=== PATIENT | female | born 1975 | race Caucasian/White ===

== ENCOUNTER 2020-10-05 13:25 | Emergency (ER) | payer OTHER ==
[2020-10-05] MEDS ORDERED: Metoclopramide 10 MG/2 ML SDV IVPUSH ONE (13:37)
[2020-10-05] MEDS ORDERED: HYDROmorphone 0.5 MG/0.5 ML Syringe IVPUSH ONE (13:37)
[2020-10-05] MEDS ORDERED: Diphtheria,Pertussis(Acell),Tetanus Vaccine 0.5 ML Syringe IM ONE (13:42)
[2020-10-05] MEDS ORDERED: Dextrose 5%-0.9% NaCl 1,000 ML IV SCH (13:45)
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
--- NOTE | 2020-10-05 14:37 | CT ---
CT neck Technique: Multiple axial sectioans were obtained from above the dome of the diaphragm inferiorly to the top of T2. Reconstructed coronal and sagittal images were obtained. Comparison: No prior cervical spine imaging is available. Findings: Vertebral body heights and disc spaces are maintained. No bony central or bony neural foraminal stenosis is seen. No acute fracture or subluxation is seen. Impression: 1. No abnormality is identified on CT study of the cervical spine. Diagnostic code #1
--- NOTE | 2020-10-05 14:38 | CT ---
Head CT Technique: Multiple axial sections through the brain were obtained. Intravenous contrast was not utilized. Reconstructed coronal and sagittal images were obtained. Comparison: No prior intracranial imaging is available. Findings: Ventricles along with basal cisterns and sulci over the convexities appear within normal limits for the patient's age. No abnormal parenchymal densities are seen. No evidence of intracranial hemorrhage is seen. No midline shift or mass-effect is seen. Bone window settings were reviewed. Visualized mastoid sinuses and paranasal sinuses show nothing acute. No acute calvarial abnormality is appreciated. Impression: 1. Nothing acute is appreciated on noncontrast head CT exam. Diagnostic code #1
[2020-10-05] MEDS ORDERED: Ondansetron 4 MG/2 ML SDV ONE (15:03)
[2020-10-05] MEDS ORDERED: Ondansetron 4 MG/2 ML SDV IVPUSH ONE (15:03)
--- NOTE | 2020-10-05 17:24 | CR ---
Chest: Frontal view of the chest was obtained in AP projection. Comparison: No prior chest imaging is available. Slightly comminuted and foreshortened fracture is noted within the mid clavicle. This is seen on the left side. Small fracture is also noted within the anterior left first rib. No other acute osseous abnormality is appreciated. Heart size and mediastinum are normal. Lungs are clear. Impression: 1. Displaced fracture within the mid left clavicle as well as minimal fracture within the anterior left first rib. 2. Nothing acute is otherwise seen on frontal chest x-ray. Diagnostic code #3
--- NOTE | 2020-10-05 17:27 | CR ---
Left clavicle: 2 views of the left clavicle were obtained. Comparison: No previous study. Fracture is seen within the mid clavicle on the left side which is mildly comminuted. There is displacement and foreshortening being seen. Fracture within the anterior aspect of the left first rib is also again noted. No additional abnormality is seen other than soft tissue swelling. Impression: 1. Mid left clavicle fracture with comminution and foreshortening. 2. Minimal fracture within the anterior left first rib. Diagnostic code #3
--- NOTE | 2020-10-05 18:02 | CR ---
Left forearm: 2 views of the left forearm were obtained. Comparison: No previous study. Several scattered densities are noted within the soft tissues of the left forearm presumably due to foreign bodies. Please correlate. No acute fracture or other bony abnormality is appreciated. Impression: 1. Small foreign bodies as noted above within the soft tissues. 2. No acute osseous finding is seen. Diagnostic code #2
== END 2020-10-05 15:30 | disposition home or self-care (01) ==
LOC: JD.ED 13:25
DX: S06.0X9A Concussion with loss of consciousness of unspecified duration, initial encounter (principal); S42.022A Displaced fracture of shaft of left clavicle, initial encounter for closed fracture; S00.83XA Contusion of other part of head, initial encounter; S40.212A Abrasion of left shoulder, initial encounter; S40.211A Abrasion of right shoulder, initial encounter; S50.812A Abrasion of left forearm, initial encounter; S50.811A Abrasion of right forearm, initial encounter; S50.312A Abrasion of left elbow, initial encounter; S50.311A Abrasion of right elbow, initial encounter; Z23 Encounter for immunization; V19.9XXA Pedal cyclist (driver) (passenger) injured in unspecified traffic accident, initial encounter
CPT/HCPCS: 70450; 70450-26; 71045; 71045-26; 72125; 72125-26; 73000-26-LT; 73000-LT; 73090-26-LT; 73090-LT; 90471; 90715; 96374; 96375; 99284; 99285-25; J1170; J2405; J2765; J7042

== ENCOUNTER → 2020-10-09 | Day surgery (SDC) | payer OTHER ==
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
[~2020-10-09] MED LIST: Bupivacaine 0.25% 10 ML SDV ONE; Cyclobenzaprine 10 MG Tab PO PRN; Dexamethasone 4 MG/ML 5 ML MDV ONE; EPINEPHrine 1 MG/ML SDV ONE; Glycopyrrolate 0.2 MG/ML SDV ONE; Lactated Ringers 1,000 ML IV ONE; Lactated Ringers 1,000 ML IV SCH; Lidocaine 1% 4 ML ONE; Lidocaine 1%/Sod Bicarbonate in NS 8.4% 1 ML Syringe IDERM PRN; Midazolam 1 MG/ML 2 ML SDV ONE; Ondansetron 4 MG/2 ML SDV IVPUSH PRN; Ondansetron 4 MG/2 ML SDV ONE; Propofol 200 MG/20 ML SDV ONE; Rocuronium 50 MG/5 ML Vial ONE; Ropivacaine 0.5% 5 MG/ML 30 ML SDV ONE; Sodium Chloride 0.9% 10 ML Syringe FLUSH PRN; ceFAZolin 1 GM Vial ONE; fentaNYL 100 MCG/2 ML SDV IVPUSH PRN; fentaNYL 100 MCG/2 ML SDV ONE; fentaNYL 250 MCG/5 ML SDV ONE; oxyCODONE 5 MG Tab PO PRN
--- NOTE | 2020-10-09 13:40 | PCM.SN.2 ---
- Free Text/Narrative Note: Surgical Procedure: Left clavicle fracture ORIF Diagnosis Left clavicle fracture Current Procedure: Left interscalene block under US guidance for postoperative pain control requested by Dr. Salas. Patient chart reviewed, risk/benefits discussed with patient, consent obtained. Patient positioned supine, monitors/alarms on, oxygen placed via nasal cannula at 2 LPM. IV sedation administered: Versed 2mg IV, Fentanyl 150mcg IV given in preop prior to block placement. Left shoulder prepped with three chloropreps. Sterile drapes placed with aseptic technique noted. Under US guidance, left subclavian artery visualized along with the left brachial plexus. Plexus area localized with 2mls of 1% lidocaine. 22gauge 2 inch stimiplex needle advanced under US with 0.8mV with stimulation of biceps noted. Good stimulation noted with decreased voltage and absent at 0.3mVs. 1ml of Normal Saline injected with loss of stimulation noted to confirm needle not placed intraneurally. Incremental dosing of 5mls with negative aspiration noted prior to each injection of 0.5% ropivacaine with 1:200,000 epinephrine. Total volume=30mls. Please refer to nurses noted for vital signs. Breezy Velázquez CRNA
--- NOTE | 2020-10-09 15:37 | CR ---
Left clavicle: 3 fluoroscopic spot views were obtained of the left clavicle utilizing C-arm device. Comparison: Prior left clavicle study of 10/05/20. Previous clavicle fracture shows evidence of reduction on current study. There has been placement of plate and screws affixing the fracture. Fluoroscopy time is given as 5.1 seconds. Impression: 1. Procedural study as noted above. Diagnostic code #2
--- NOTE | 2020-10-09 16:03 | PCM.POSTAN ---
POST ANESTHESIA ASSESSMENT - MENTAL STATUS Mental Status: Alert, Oriented - VITAL SIGNS Vital Signs: Last Vital Signs Temp 97.6 F 10/09/20 15:50 Pulse 61 10/09/20 15:50 Resp 9 L 10/09/20 15:50 BP 117/55 L 10/09/20 15:50 Pulse Ox 95 10/09/20 15:50 PACU VS: BP 117/55 HR 61 RR 10 95% on 2 liters 97.6 - RESPIRATORY Respiratory Status: Respiratory Rate WNL, Airway Patent, O2 Saturation Stable - CARDIOVASCULAR CV Status: Pulse Rate WNL, Blood Pressure Stable - GASTROINTESTINAL GI Status: No Symptoms - POST OP HYDRATION Hydration Status: Adequate & Stable
[2020-10-09] MEDS: HYDROmorphone 0.5 MG/0.5 ML Syringe IVPUSH PRN ×2 (16:10→16:26)
--- NOTE | 2020-10-13 14:34 | PCM.OPNOTE ---
- General Post-Op/Procedure Note Date of Surgery/Procedure: 10/09/20 Operative Procedure(s): open reduction internal fixation left midshaft clavicle fracture Pre Op Diagnosis: left midshaft clavicle fracture Post-Op Diagnosis: Same Anesthesia Technique: General LMA, Local Primary Surgeon: Conrad Salas Anesthesia Provider: Leilani Hernandez Boarding Specialist: Keira Fonseca EBL in mLs: 50 Complications: None Condition: Good
--- NOTE | 2020-10-14 09:52 | OR ---
DATE OF OPERATION: 10/09/2020 SURGEON: Conrad Salas MD OPERATION PERFORMED: Open reduction internal fixation of left midshaft clavicle fracture. PREOPERATIVE DIAGNOSIS: Left midshaft clavicle fracture. POSTOPERATIVE DIAGNOSIS: Left midshaft clavicle fracture. ANESTHESIA: General LMA with local. ANESTHESIA PROVIDER: Leilani Hernandez. ENTERPRISE RESOURCE ANALYST: Keira Fonseca PA-C ESTIMATED BLOOD LOSS: 50 mL. COMPLICATIONS: None. CONDITION: Stable. DESCRIPTION OF PROCEDURE: The patient was identified in the preoperative holding area. Proper site was marked and identified by the surgeon. The patient was taken back to the operative theater where after adequate anesthesia, the patient's left upper extremity was then sterilely prepped and draped in the usual sterile fashion. OR time-out was performed. The patient received 2 g IV Ancef. Table was placed in reverse Trendelenburg position. Standard anterior-superior incision was made over the midshaft clavicle fracture. This was taken down through the platysma level. At this time, the fracture site was identified. It was curetted, rongeured, and irrigated of all fracture hematoma. The 2 large main fragments of the proximal and distal fracture were identified. I was then able to reduce these before the butterfly fragment and I was able to get anatomic alignment. I was able to place two 3.5 lag screws by lag-by technique in the 2 main fragments and then I was able to do another lag screw through the butterfly fragment with anatomic reduction with a 3.5 screw from anterior to posterior for anatomic reduction with the 3 lag screws. At this time, a Kristen locking bridge plate was then placed. It was found to be in adequate position on C-arm fluoroscopy. I was then able to obtain 6 cortices both proximally and distally from the fracture site from the comminuted region to bridge the fracture. C-arm fluoroscopy showed anatomic alignment of the clavicle with proper positioning of the plate. Adequate saline was irrigated through the wound. The reji- incisional injection was done. 0 Vicryl running suture was then used for closure of the platysma level, 2-0 Vicryl was used subcutaneously, and Prineo was used for closure of the skin. The patient had a sterile soft dressing applied as well as a sling and sent to the PACU in stable condition. MMODAL /[id number]
== END | disposition home or self-care (01) ==
LOC: JD.SDS 10:57
PROVIDERS: ATTEND Orthopaedic Surgery
DX: S42.022A Displaced fracture of shaft of left clavicle, initial encounter for closed fracture (principal); G89.18 Other acute postprocedural pain; Z79.899 Other long term (current) drug therapy
CPT/HCPCS: 23515; 76000; 81025; A9270; C1713; J0171; J0690; J1100; J1170; J2250; J2405; J2704; J2710; J2795; J3010; J3490; J7120; 00450; 64415; 76942